=== PATIENT | female | born 1965 | race African-American/Black ===

== ENCOUNTER 2018-10-17 23:25 | Emergency (ER) | payer OTHER ==
[~2018-10-17] VITALS: Ht 172.7 cm; Wt 79.4 kg
[2018-10-17 23:25] VITALS: BP 138/83
[~2018-10-17 23:25] MED LIST: DICY10CA53 PO; ONDA4TAB10 SL
[2018-10-18] MEDS ORDERED: DEXAMETHASONE 4 MG TABLET PO ONE (00:30)
--- NOTE | 2018-10-18 00:39 | PHYS DOC ---
Past Medical History Past Medical History: Arthritis, Asthma, Bronchitis Additional Past Medical Histor: emphysema Past Surgical History: Other Additional Past Surgical Histo: hardware in left fa Alcohol Use: Occasionally Drug Use: None Adult General Chief Complaint Chief Complaint: KNEE INJURY HPI HPI Patient is 52 yo female w/ PMH RA and COPD who presents with complaint of bilateral knee pain. Patient reports she has had RA for many years and was on medication, however she is establishing care with a new PCP (Quirino) and has been out of medication for her RA for some time. She has a prescription from Dr. Win[facility] practice for BL xrays of wrists, knees, and ankles. She has previously been able to manage her pain with 800 mg ibuprofen, however this evening the pain became so bad she was unable to walk. She last took 800 mg ibuprofen 1 hr prior to presentation (around 2300) with minimal symptomatic relief. She admits to shortness of breath however she believes that is from her COPD. She denies any additional associated symptoms. She does note that she falls quite frequently however she has not fallen recently nor caused trauma to knees. Patient denies tobacco use but does admit to etoh use, admitting that she drank 2 beers prior to arrival. She denies drug use. Review of Systems Review of Systems Constitutional: Denies fever or chills [] Eyes: Denies change in visual acuity, redness, or eye pain [] HENT: Denies nasal congestion or sore throat [] Respiratory: Denies cough or shortness of breath [] Cardiovascular: Denies chest pain or palpitations GI: Denies abdominal pain, nausea, vomiting, bloody stools or diarrhea [] : Denies dysuria or hematuria [] Musculoskeletal: Denies back pain. Admits to bilateral knee pain. Neurologic: Denies headache, focal weakness or sensory changes [] Complete systems were reviewed and found to be within normal limits, except as documented in this note. Current Medications Current Medications Current Medications Medications (Trade) Dose Ordered Sig/Deya Start Time Stop Time Status Last Admin Dose Admin Dexamethasone (Decadron) 10 mg 1X ONCE 10/18/18 00:30 10/18/18 00:31 DC 10/18/18 00:22 10 MG Allergies Allergies Allergies Coded Allergies Type Severity Reaction Last Updated Verified Penicillins Allergy Intermediate hives 04/03/14 Yes Physical Exam Physical Exam Constitutional: Well developed, well nourished, no acute distress, non-toxic appearance. Mild slurring of speech.[] HENT: Normocephalic, atraumatic, bilateral external ears normal, oropharynx moist, no oral exudates, nose normal. [] Eyes: EOMI, conjunctiva normal, no discharge. [] Neck: Normal range of motion, no tenderness, supple, no stridor. [] Cardiovascular:Heart rate regular rhythm, no murmur [] Lungs & Thorax: Bilateral breath sounds clear to auscultation [] Abdomen:Soft, no tenderness, no masses, no pulsatile masses. [] Skin: Warm, dry, no erythema, no rash. [] Extremities: no cyanosis, no clubbing, ROM intact, no edema. severe ulnar drift noted in metacarpals of L and R hands. No swelling, edema, or erythema bilateral knees. Pain elicited with flexion/extension. Neurologic: Alert and oriented X 3, normal motor function, normal sensory function, no focal deficits noted. [] Current Patient Data Vital Signs Vital Signs Date Time Temp Pulse Resp B/P (MAP) Pulse Ox O2 Delivery O2 Flow Rate FiO2 10/17/18 23:25 98.3 82 20 138/83 (101) 96 Room Air 98.3 EKG EKG [] Radiology/Procedures Radiology/Procedures BL knee imaging: Preliminary reading: No acute bony process. [] Course & Med Decision Making Course & Med Decision Making Patient is 52 yo female w/ RA and COPD who presents with complaint of bilateral knee pain. Patient has severe RA and has had chronic knee pain, however tonight she states the pain became so severe that she cannot walk although she denies trauma to her knees. She has previously been able to manage pain with ibuprofen and last took 800 mg 1 hr prior to presentation. Of note patient admits to drinking 2 beers prior to presentation. On physical exam her vitals are WNL, significant ulnar drift present in metacarpals, knees have no swelling, erythema , edema. She complains of pain flexion/extension of both knees. Nurse witnessed patient ambulating without trouble to restroom. Bilateral knee imaging revealed no acute bony process although significant chronic wear is present. Patient treat in ED with dexamethasone. Discussed with patient that she needs to follow up with PCP and gave her name of Jude. Discharged patient with prescription for naproxen. Patient voiced understanding and agreement with plan. Dragon Disclaimer Aaliyah Disclaimer This electronic medical record was generated, in whole or in part, using a voice recognition dictation system. Departure Departure Impression: Primary Impression: Knee pain Additional Impression: Arthritis Disposition: HOME, SELF-CARE Condition: STABLE Referrals: NO PCP (PCP) CHRISTOPHER FRAZIER MD Patient Instructions: Knee Pain, [id number], Knee Wraps (Elastic Bandage) and RICE, Rheumatoid Arthritis, [id number] Scripts Naproxen Sodium (Naproxen Sodium Cr) 375 Mg Tbmp.24hr 375 MG PO TID PRN for PAIN, #30 TAB.SR Prov: ARUNA CHEUNG DO 10/18/18 Problem Qualifiers Primary Impression: Knee pain Chronicity: chronic Laterality: bilateral Qualified Codes: M25.561 - Pain in right knee; M25.562 - Pain in left knee; G89.29 - Other chronic pain ARUNA CHEUNG DO Oct 18, 2018 00:39
[2018-10-18] MEDS ORDERED: NAPR-600 PO (00:45)
--- NOTE | 2018-10-18 08:05 | RAD ---
Bilateral knee radiograph 10/18/2018 12:09 AM INDICATION: Bilateral knee pain after fall COMPARISON: None available. TECHNIQUE: 3 views the right and 3 views the left knee are provided. FINDINGS: Right: There is no acute fracture or dislocation. 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 Bone mineralization is within normal limits. Joint spaces are maintained. Regional soft tissues are within normal limits. There is no soft tissue gas or osseous erosion. There is a small right knee joint effusion. Left: There is no acute fracture or dislocation. Bone mineralization is within normal limits. There is mild medial femorotibial joint space narrowing with mild marginal osteophytosis compatible with mild osteoarthrosis. Regional soft tissues are within normal limits. There is no soft tissue gas or osseous erosion. No knee joint effusion. IMPRESSION: No acute fracture or dislocation. Mild left medial femorotibial osteoarthrosis. Curvilinear ossific density is identified along the right knee medial femoral condyle which may represent a Zachary-Stieda lesion. Small right knee joint effusion. Electronically signed by: Josy lLoyd MD (10/18/2018 8:00 AM) [facility]
== END 2018-10-18 01:29 | disposition home or self-care (01) ==
LOC: ER 23:25
DX: M17.0 Bilateral primary osteoarthritis of knee (principal); R06.02 Shortness of breath; R47.81 Slurred speech; J44.9 Chronic obstructive pulmonary disease, unspecified; J45.909 Unspecified asthma, uncomplicated; Z88.0 Allergy status to penicillin
CPT/HCPCS: 73562; 99284; J8540

== ENCOUNTER → 2018-12-22 | Outpatient (CLI) | payer OTHER ==
[~2018-12-22] MED LIST changes: +NAPR-600 PO
--- NOTE | 2018-12-22 13:34 | RAD ---
DATE: 12/22/2018 EXAM: DIGITAL SCREEN BILAT W/CAD HISTORY: Routine screening COMPARISON: 12/02/2012 This study was interpreted with the benefit of Computerized Aided Detection (CAD). Breast Density: SCATTERED The breast parenchyma shows scattered fibroglandular densities. Breast parenchyma level B. FINDINGS: There is an asymmetric opacity in the inferior aspect of the right breast at the 6:00 location. A different shaped opacity was present in approximately this same region on the old study. Apparently, this process was never worked up. No other suspicious breast densities are seen. Benign type calcifications are present. No suspicious microcalcifications are seen. IMPRESSION: Small right breast asymmetry. Diagnostic mammography to include spot compression and straight mediolateral views is suggested, as well as probably right breast ultrasound. BI-RADS CATEGORY: 0 INCOMPLETE: NEEDS ADDITIONAL IMAGING EVALUATION AND/OR PRIOR MAMMOGRAMS FOR COMPARISON. RECOMMENDED FOLLOW-UP: ADD ADDITIONAL IMAGING PQRS compliance statement: Patient information was entered into a reminder system with a target due date for the next mammogram. Mammography is a sensitive method for finding small breast cancers, but it does not detect them all and is not a substitute for careful clinical examination. A negative mammogram does not negate a clinically suspicious finding and should not result in delay in biopsying a clinically suspicious abnormality. "Our facility is accredited by the [employer] Mammography Program."
== END | disposition home or self-care (01) ==
LOC: MAMMO 12:39
PROVIDERS: ATTEND Internal Medicine
DX: Z12.31 Encounter for screening mammogram for malignant neoplasm of breast (principal); N64.89 Other specified disorders of breast
CPT/HCPCS: 77067

== ENCOUNTER → 2019-01-05 | Outpatient (CLI) | payer OTHER ==
--- NOTE | 2019-01-05 15:36 | RAD ---
DATE: 01/05/2019 EXAM: DIGITAL DIAGNOSTIC RT, BREAST RIGHT HISTORY: Abnormal mammogram. Patient also reports a palpable abnormality at the right breast 2:00 region. It has been present intermittently for the past one year. No increase. COMPARISON: 12/02/2012, 12/22/2018 mammographic exams This study was interpreted with the benefit of Computerized Aided Detection (CAD). Breast Density: SCATTERED The breast parenchyma shows scattered fibroglandular densities. Breast parenchyma level B. FINDINGS: Spot compression imaging of the right breast was performed. The area of interest involving the 6:00 region is not identified on the MLO spot compression image or on the mediolateral view obtained. It is less evident on the CC spot compression image as compared to the screening mammographic examination images. On ultrasound examination of the right breast at the 6:00 region, there is a well-circumscribed hyperechoic structure measuring 1.4 cm x 1.4 cm x 0 point a similar tall. Hypoechogenicities present within. No flow evident. It is relatively smoothly marginated. At the 2:00 region, there is no mass, cyst, or other suspicious finding. No palpable abnormality at this site upon physical exam by myself. IMPRESSION: A structure involving the right breast 6:00 region corresponding to mammographic examination. No aggressive features. Six-month follow-up right breast mammographic exam and possibly right breast ultrasound recommended. BI-RADS CATEGORY: 3 PROBABLY BENIGN FINDING(S)-SHORT INTERVAL FOLLOW-UP SUGGESTED RECOMMENDED FOLLOW-UP: 6M 6 MONTH FOLLOW-UP PQRS compliance statement: Patient information was entered into a reminder system with a target due date in 6 months for the next mammogram. Mammography is a sensitive method for finding small breast cancers, but it does not detect them all and is not a substitute for careful clinical examination. A negative mammogram does not negate a clinically suspicious finding and should not result in delay in biopsying a clinically suspicious abnormality. "Our facility is accredited by the [employer] Mammography Program."
== END | disposition home or self-care (01) ==
LOC: MAMMO 13:11
PROVIDERS: ATTEND Internal Medicine
DX: R92.8 Other abnormal and inconclusive findings on diagnostic imaging of breast (principal)
CPT/HCPCS: 76641; 77065

== ENCOUNTER 2019-02-07 10:45 | Emergency (ER) | payer OTHER ==
[~2019-02-07] VITALS: Ht 172.7 cm; Wt 80.7 kg
[2019-02-07 10:57] VITALS: BP 140/88
--- NOTE | 2019-02-07 11:08 | PHYS DOC ---
Past Medical History Past Medical History: Arthritis, Asthma, Bronchitis Additional Past Medical Histor: emphysema Past Surgical History: Other Additional Past Surgical Histo: hardware in left fa Alcohol Use: Occasionally Drug Use: None Adult General Chief Complaint Chief Complaint: LOWER EXT PAIN HPI HPI Patient is a 53 year old female presents to the ED complaining of right leg injury times 8 days ago. Patient states that she tripped going up some stairs and injured her right lower leg. Complains of pain to right lower leg and right ankle. Describes the pain as sharp. Rates the pain as 8 out 10. States she's been able to bear weight. Denies symptoms prior to fall, use of blood thinners, weakness, paresthesias, head/neck injury, LOC, vision changes or nausea/vomiting. Review of Systems Review of Systems Constitutional: Denies fever or chills [] Eyes: Denies change in visual acuity, redness, or eye pain [] HENT: Denies nasal congestion or sore throat [] Respiratory: Denies cough or shortness of breath [] Cardiovascular: No additional information not addressed in HPI [] GI: Denies abdominal pain, nausea, vomiting, bloody stools or diarrhea [] : Denies dysuria or hematuria [] Musculoskeletal: Complains of right lower leg and ankle pain. Denies back pain. [] Integument: Denies rash or skin lesions [] Neurologic: Denies headache, focal weakness or sensory changes [] All other systems were reviewed and found to be within normal limits, except as documented in this note. Allergies Allergies Allergies Coded Allergies Type Severity Reaction Last Updated Verified Penicillins Allergy Intermediate hives 04/03/14 Yes Physical Exam Physical Exam Constitutional: Well developed, well nourished, no acute distress, non-toxic appearance. [] HENT: Normocephalic, atraumatic Cardiovascular:Heart rate regular rhythm, no murmur [] Lungs & Thorax: Bilateral breath sounds clear to auscultation [] Skin: Warm, dry, no erythema, no rash. [] Back: No tenderness, no CVA tenderness. [] Extremities: mild right anterior tibia and lateral ankle tenderness/swelling. FROM. NV intact. no cyanosis, no clubbing, no edema. [] Neurologic: Alert and oriented X 3, normal motor function, normal sensory fu nction, no focal deficits noted. [] Psychologic: Affect normal, judgement normal, mood normal. [] Current Patient Data Vital Signs Vital Signs Date Time Temp Pulse Resp B/P (MAP) Pulse Ox O2 Delivery O2 Flow Rate FiO2 02/07/19 10:57 97.7 87 16 140/88 (105) 100 Room Air 97.7 EKG EKG [] Radiology/Procedures Radiology/Procedures []PROCEDURE: ANKLE RIGHT 3V TIBIA FIBULA RIGHT, ANKLE RIGHT 3V History: Fall on Thursday with pain in the right lower leg, swelling and lump near mid shaft Comparison: None. Findings: 2 views of the right tibia-fibula are submitted. Remainder of the distal tibia fibula were included on ankle radiographs. No acute fracture or dislocation is identified. There is more focal soft tissue swelling anterior to the proximal one third of the tibia. There is corticated ossific body along the medial femoral condyle likely due to old trauma and medial collateral ligament injury. Right ankle: 3 views of the right ankle are submitted. No acute fracture or dislocation is identified. Impression: 1. No acute fracture is identified of the right tibia fibula or right ankle.. There is more focal soft tissue swelling anterior to the proximal one third shaft of the tibia. PROCEDURE: VENOUS LOWER EXTREMITY RIGHT Examination: Lower Extremity Venous Doppler Ultrasound History: Right lower extremity pain, lump in addition for one week Comparison: None Procedure: Hsieh scale, color flow 2D and spectal waveform analysis images are obtained with and without compression in the area of the common femoral vein, superficial femoral vein - femoral vein junction, main femoral vein (superficial femoral vein) and popliteal vein. Veins of the proximal calf are also imaged. Findings: There is normal duplex flow, color flow and compressibility of all visualized vein segments. No evidence of deep venous thrombus is present. There is a 5.0 x 1.4 x 4.0 cm hypoechoic fluid collection identified in the mid right hurst at the site of injury probably a hematoma. Impression: 1. No evidence of deep venous thrombosis right lower extremity. 2. 5.0 x 1.4 x 4.0 cm hypoechoic fluid collection identified in the mid right hurst at the site of injury probably a hematoma. Follow-up to resolution. Course & Med Decision Making Course & Med Decision Making Pertinent Labs and Imaging studies reviewed. (See chart for details) []Discussed imaging findings with patient. Patient's pain improved in the ED. States she's feeling much better. Patient able to ambulate per her normal. Discussed symptomatic treatment and follow-up for resolution of hematoma. Discussed reasons to return to the ED. Patient understands and agrees with plan. Family at bedside. Dragon Disclaimer Dragon Disclaimer This electronic medical record was generated, in whole or in part, using a voice recognition dictation system. Departure Departure Impression: Primary Impression: Hematoma Disposition: 01 HOME, SELF-CARE Condition: IMPROVED Referrals: SILVIO HINSON MD (PCP) Patient Instructions: Hematoma RANDALL WHEAT February 07, 2019 11:08
--- NOTE | 2019-02-07 12:01 | RAD ---
TIBIA FIBULA RIGHT, ANKLE RIGHT 3V History: Fall on Thursday with pain in the right lower leg, swelling and lump near mid shaft Comparison: None. Findings: 2 views of the right tibia-fibula are submitted. Remainder of the distal tibia fibula were included on ankle radiographs. No acute fracture or dislocation is identified. There is more focal soft tissue swelling anterior to the proximal one third of the tibia. There is corticated ossific body along the medial femoral condyle likely due to old trauma and medial collateral ligament injury. Right ankle: 3 views of the right ankle are submitted. No acute fracture or dislocation is identified. Impression: 1. No acute fracture is identified of the right tibia fibula or right ankle.. There is more focal soft tissue swelling anterior to the proximal one third shaft of the tibia. Electronically signed by: Cristian Song MD (02/07/2019 11:58 AM) [id number]
--- NOTE | 2019-02-07 12:02 | RAD ---
Examination: Lower Extremity Venous Doppler Ultrasound History: Right lower extremity pain, lump in addition for one week Comparison: None Procedure: Hsieh scale, color flow 2D and spectal waveform analysis images are obtained with and without compression in the area of the common femoral vein, superficial femoral vein - femoral vein junction, main femoral vein (superficial femoral vein) and popliteal vein. Veins of the proximal calf are also imaged. Findings: There is normal duplex flow, color flow and compressibility of all visualized vein segments. No evidence of deep venous thrombus is present. There is a 5.0 x 1.4 x 4.0 cm hypoechoic fluid collection identified in the mid right hurst at the site of injury probably a hematoma. Impression: 1. No evidence of deep venous thrombosis right lower extremity. 2. 5.0 x 1.4 x 4.0 cm hypoechoic fluid collection identified in the mid right hurst at the site of injury probably a hematoma. Follow-up to resolution. Electronically signed by: Juan Ramon Orourke MD (02/07/2019 11:59 AM) [place] [id number]
== END 2019-02-07 12:35 | disposition home or self-care (01) ==
LOC: ER 10:45
DX: S80.11XA Contusion of right lower leg, initial encounter (principal); M79.661 Pain in right lower leg; J45.909 Unspecified asthma, uncomplicated; Z88.0 Allergy status to penicillin; W01.0XXA Fall on same level from slipping, tripping and stumbling without subsequent striking against object, initial encounter; Y93.89 Activity, other specified; Y92.89 Other specified places as the place of occurrence of the external cause; Y99.8 Other external cause status
CPT/HCPCS: 73590; 73610; 93971; 99284-25

== ENCOUNTER 2019-08-27 10:33 | Emergency (ER) | payer MEDICAID, OTHER ==
[~2019-08-27] VITALS: Ht 172.7 cm; Wt 78.5 kg
[2019-08-27 11:04] VITALS: BP 168/90
[2019-08-27] MEDS ORDERED: KETOROLAC TROMETHAMINE 10 MG TABLET PO STA (11:23)
[2019-08-27] MEDS ORDERED: silver sulfADIAZINE 1% CREAM 25GM TUBE. TP STA (11:23)
[2019-08-27] MEDS ORDERED: diphenhydrAMINE HCL 25 MG CAPSULE PO STA (11:23)
[2019-08-27] MEDS ORDERED: SILV20CR14 TP (11:42)
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
== END 2019-08-27 11:52 | disposition home or self-care (01) ==
LOC: ER 10:33
DX: T22.211A Burn of second degree of right forearm, initial encounter (principal); M19.90 Unspecified osteoarthritis, unspecified site; L23.3 Allergic contact dermatitis due to drugs in contact with skin; J45.909 Unspecified asthma, uncomplicated; Z88.0 Allergy status to penicillin; X11.8XXA Contact with other hot tap-water, initial encounter; Y93.89 Activity, other specified; Y92.89 Other specified places as the place of occurrence of the external cause; Y99.8 Other external cause status
CPT/HCPCS: 16020; 99284; Q0163

== ENCOUNTER 2019-11-11 21:04 | Emergency (ER) | payer MEDICAID ==
[~2019-11-11] VITALS: Ht 172.7 cm; Wt 79.5 kg
[~2019-11-11 21:04] MED LIST changes: +SILV20CR14 TP
--- NOTE | 2019-11-11 21:37 | PHYS DOC ---
Past Medical History Past Medical History: Arthritis, Asthma, Bronchitis Additional Past Medical Histor: emphysema Past Surgical History: Other Additional Past Surgical Histo: hardware in left fa Smoking Status: Current Every Day Smoker Alcohol Use: Occasionally Drug Use: None Adult General Chief Complaint Chief Complaint: ALCOHOL INTOXICATION HPI HPI 54-year-old female presents to the emergency department with complaints of fall. Patient has a history of asthma, bronchitis, and RA. Patient apparently called EMS tonight after a fall with positive loss of consciousness according to her friends. Patient is intoxicated. Patient complains of leg pain of which is chronic. Patient denies any chest pain, shortness breath, nausea, vomiting, headache or visual changes. Nothing makes symptoms better. Patient states ambulation/weight bearing makes worse. Review of Systems Review of Systems Constitutional: Denies fever or chills [] Respiratory: Denies cough or shortness of breath [] Cardiovascular: No additional information not addressed in HPI [] GI: Denies abdominal pain, nausea, vomiting, bloody stools or diarrhea [] Musculoskeletal: chronic pain to bilateral lower ext Integument: Denies rash or skin lesions [] Neurologic: Denies headache, focal weakness or sensory changes [] All other systems were reviewed and found to be within normal limits, except as documented in this note. Current Medications Current Medications Current Medications Medications (Trade) Dose Ordered Sig/[facility] Start Time Stop Time Status Last Admin Dose Admin Acetaminophen (Tylenol) 1,000 mg 1X ONCE 11/11/19 22:00 11/11/19 22:01 DC Ibuprofen (Motrin) 800 mg 1X ONCE 11/11/19 22:00 11/11/19 22:01 DC Allergies Allergies Allergies Coded Allergies Type Severity Reaction Last Updated Verified Penicillins Allergy Intermediate hives 04/03/14 Yes Physical Exam Physical Exam Constitutional: Well developed, well nourished, no acute distress, non-toxic appearance. [] HENT: Normocephalic, atraumatic, bilateral external ears normal, oropharynx mois t, no oral exudates, nose normal. [] Eyes: PERRLA, EOMI, conjunctiva normal, no discharge. [] Neck: Normal range of motion, no tenderness, supple, no stridor. [] Cardiovascular:Heart rate regular rhythm, no murmur [] Lungs & Thorax: Bilateral breath sounds clear to auscultation [] Abdomen: Bowel sounds normal, soft, no tenderness, no masses, no pulsatile masses. [] Skin: Warm, dry, no erythema, no rash. [] Back: No tenderness, no CVA tenderness. [] Extremities: No tenderness, no edema. [] Neurologic: Alert and oriented X 3, no focal deficits noted. [] Psychologic: Affect normal, judgement normal, mood normal. [] EKG EKG [] Radiology/Procedures Radiology/Procedures [][facility] [address] [place] [address] IMAGING REPORT Signed PATIENT: IBIS LUCAS ACCOUNT: [id number] : 1965 LOCATION: ER AGE: 54 SEX: F EXAM STATUS: PRE ER ORD. PHYSICIAN: NATALIIA SCHMIDT MD REASON: fall, intoxication + LOC PROCEDURE: CT HEAD WO CONTRAST Exam: CT head INDICATION: Fall TECHNIQUE: Sequential axial images through the head were obtained without the administration of IV contrast. Comparisons: None FINDINGS: No focal parenchymal lesion or hemorrhage is identified. There is no midline shift or sulcal effacement. No acute vascular territory infarction is identified. Hsieh-white distinction is preserved. The ventricular system is within normal limits without compression hydrocephalus. The basal cisterns are well maintained. Mild extra cranial soft tissue contusion overlying the right superior orbital ridge. The visualized portions of the paranasal sinuses and mastoid air cells are well-pneumatized. No acute fractures. IMPRESSION: Mild extra cranial soft tissue contusion overlying the right superior orbital ridge without underlying osseous or intracranial traumatic Exposure: One or more of the following in the visualized dose reduction techniques were utilized for this examination: 1. Automated exposure control 2. Adjustment of the MA and/or KV according to patient size Use of iterative of reconstructive technique Electronically signed by: Adam Tate MD (11/11/2019 9:57 PM) [id number] DICTATED and SIGNED BY: ADAM TATE MD DATE: 11/11/192156 Course & Med Decision Making Course & Med Decision Making Pertinent Labs and Imaging studies reviewed. (See chart for details) []54-year-old female presents to the emergency department with complaints of fall. Patient has a history of asthma, bronchitis, and RA. Patient apparently called EMS tonight after a fall with positive loss of consciousness according to her friends. Patient is intoxicated. Patient complains of leg pain of which is chronic. Patient denies any chest pain, shortness breath, nausea, vomiting, headache or visual changes. Nothing makes symptoms better. Patient states ambulation/weight bearing makes worse. Dragon Disclaimer Dragon Disclaimer This electronic medical record was generated, in whole or in part, using a voice recognition dictation system. Departure Departure Impression: Primary Impression: Alcohol intoxication Additional Impressions: Contusion of head Chronic pain Disposition: HOME, SELF-CARE Condition: STABLE Referrals: SILVIO HINSON MD (PCP) Patient Instructions: Alcohol Intoxication, [id number], Chronic Pain Additional Instructions: CT negative for acute bleeding Tylenol/Motrin as needed for pain Recommend following up with PCP for chronic pain mgmt issues Return to the ER with worsening pain, fever, altered mental status Problem Qualifiers Primary Impression: Alcohol intoxication Complication of substance-induced condition: uncomplicated Qualified Codes: F10.920 - Alcohol use, unspecified with intoxication, uncomplicated Additional Impressions: Contusion of head Encounter type: initial encounter Contusion of head detail: scalp Qualified Codes: S00.03XA - Contusion of scalp, initial encounter Chronic pain Chronic pain type: other chronic pain Qualified Codes: G89.29 - Other chronic pain NATALIIA SCHMIDT MD Nov 11, 2019 21:36
[2019-11-11] MEDS ORDERED: ACETAMINOPHEN 500 MG TABLET PO ONE (22:00)
[2019-11-11] MEDS ORDERED: IBUPROFEN 400 MG TABLET. PO ONE (22:00)
--- NOTE | 2019-11-11 22:00 | RAD ---
Exam: CT head INDICATION: Fall TECHNIQUE: Sequential axial images through the head were obtained without the administration of IV contrast. Comparisons: None FINDINGS: No focal parenchymal lesion or hemorrhage is identified. There is no midline shift or sulcal effacement. No acute vascular territory infarction is identified. Hsieh-white distinction is preserved. The ventricular system is within normal limits without compression hydrocephalus. The basal cisterns are well maintained. Mild extra cranial soft tissue contusion overlying the right superior orbital ridge. The visualized portions of the paranasal sinuses and mastoid air cells are well-pneumatized. No acute fractures. IMPRESSION: Mild extra cranial soft tissue contusion overlying the right superior orbital ridge without underlying osseous or intracranial traumatic Exposure: One or more of the following in the visualized dose reduction techniques were utilized for this examination: 1. Automated exposure control 2. Adjustment of the MA and/or KV according to patient size Use of iterative of reconstructive technique Electronically signed by: Adam Mart MD (11/11/2019 9:57 PM) [id number]
[2019-11-11 22:16] VITALS: BP 107/65
== END 2019-11-11 22:30 | disposition home or self-care (01) ==
LOC: ER 21:04
DX: S00.03XA Contusion of scalp, initial encounter (principal); F10.920 Alcohol use, unspecified with intoxication, uncomplicated; G89.29 Other chronic pain; M79.604 Pain in right leg; M79.605 Pain in left leg; J45.909 Unspecified asthma, uncomplicated; F17.200 Nicotine dependence, unspecified, uncomplicated; Z88.0 Allergy status to penicillin; W18.39XA Other fall on same level, initial encounter; Y93.89 Activity, other specified; Y92.89 Other specified places as the place of occurrence of the external cause; Y99.8 Other external cause status
CPT/HCPCS: 70450; 99284-25